=== PATIENT | male | born 1930 | race Caucasian/White ===

== ENCOUNTER 2017-05-24 18:31 | Observation (INO) | payer OTHER, SELFPAY ==
[~2017-05-24] VITALS: Ht 185.4 cm; Wt 93.2 kg
[~2017-05-24 18:31] MED LIST: ALLO100 PO; AMLO10 PO; ASPI325 PO; ASPI81CH PO; ATEN25 PO; ATOR10 PO; Calcitriol0.5 MCG PO; FISH OIL 1,001000 MG PO; FURO40 PO; Ferrous Sulfat325 MG PO; GABA100 PO; HYDMOR2 PO; LEVSOD150 PO; LISI20 PO; Lasix40 MG PO; METO25ER PO; MULVIT PO; NEPHRO-VITE RX1 EACH PO; PARI1 PO; RXHYDMOR2 PO
[2017-05-24 20:02] LABS: Influenza A Negative (NEGATIVE); Influenza B Negative (NEGATIVE)
[2017-05-24 20:49] LABS: BASOPHILS ABSOLUTE AUTO 0.02 K/mm3 (0.00-0.23); BASOPHILS PERCENT AUTO 0 % (0-2); EOSINOPHILS ABSOLUTE AUTO 0.67 K/mm3 (0.00-0.68); EOSINOPHILS PERCENT AUTO 4 % (0-6); Hematocrit 38.1 % (37.0-53.0); Hemoglobin 12.7 g/dL (13.5-17.5); IMMATURE GRAN ABSOLUTE AUTO 0.14 K/mm3 (0.00-0.10); IMMATURE GRAN PERCENT AUTO 1 % (0-1); LYMPHOCYTES ABSOLUTE AUTO 0.55 K/mm3 (0.84-5.20); LYMPHOCYTES PERCENT AUTO 3 % (21-46); MONOCYTES ABSOLUTE AUTO 1.24 K/mm3 (0.16-1.47); MONOCYTES PERCENT AUTO 7 % (4-13); Mean Corpuscular HGB 35.3 pg (26.0-34.0); Mean Corpuscular HGB Conc 33.3 g/dL (31.5-36.5); Mean Corpuscular Volume 106 fL (80-100); Mean Platelet Volume 9.5 fL (9.1-12.4); NEUTROPHILS ABSOLUTE AUTO 15.26 K/mm3 (1.96-9.15); NEUTROPHILS PERCENT AUTO 85 % (41-73); Platelet Count 208 K/mm3 (150-400); RDW Coefficient Variation 14.3 % (11.7-14.2); RDW Standard Deviation 55.1 fL (35.1-46.3); White Blood Cell Count 17.88 K/mm3 (4.00-11.30)
[2017-05-24 20:52] LABS: International Normalized Ratio 1.07; Prothrombin Time Results 11.2 Sec (9.7-11.5)
[2017-05-24] MEDS ORDERED: [UNRECOGNIZED DRUG - CODE] PO (20:53)
[2017-05-24 20:57] LABS: Albumin, Blood 2.5 g/dL (3.4-5.0); Albumin/Globulin Ratio 0.8 (0.8-1.8); Bilirubin, Total 0.6 mg/dL (0.1-1.0); Bun/Creatinine Ratio 4.6 (12.0-20.0); Calcium, Blood 8.7 mg/dL (8.5-10.1); Creatinine, Blood 4.38 mg/dL (0.60-1.20); Globulin, Blood 3.1 g/dL (2.2-4.0); Potassium, Blood 4.1 mmol/L (3.5-5.5); Total Protein, Blood 5.6 g/dL (6.4-8.2)
[2017-05-24] MEDS ORDERED: [UNRECOGNIZED DRUG - CODE] PO (21:00)
[2017-05-25 05:26] LABS: BASOPHILS ABSOLUTE AUTO 0.02 K/mm3 (0.00-0.23); BASOPHILS PERCENT AUTO 0 % (0-2); EOSINOPHILS ABSOLUTE AUTO 0.87 K/mm3 (0.00-0.68); EOSINOPHILS PERCENT AUTO 6 % (0-6); Hematocrit 36.4 % (37.0-53.0); Hemoglobin 11.9 g/dL (13.5-17.5); IMMATURE GRAN ABSOLUTE AUTO 0.09 K/mm3 (0.00-0.10); IMMATURE GRAN PERCENT AUTO 1 % (0-1); LYMPHOCYTES ABSOLUTE AUTO 0.82 K/mm3 (0.84-5.20); LYMPHOCYTES PERCENT AUTO 5 % (21-46); MONOCYTES ABSOLUTE AUTO 1.15 K/mm3 (0.16-1.47); MONOCYTES PERCENT AUTO 7 % (4-13); Mean Corpuscular HGB 35.3 pg (26.0-34.0); Mean Corpuscular HGB Conc 32.7 g/dL (31.5-36.5); Mean Corpuscular Volume 108 fL (80-100); Mean Platelet Volume 9.9 fL (9.1-12.4); NEUTROPHILS ABSOLUTE AUTO 12.71 K/mm3 (1.96-9.15); NEUTROPHILS PERCENT AUTO 81 % (41-73); Platelet Count 203 K/mm3 (150-400); RDW Coefficient Variation 14.5 % (11.7-14.2); Red Blood Cell Count 3.37 M/mm3 (4.30-5.90); White Blood Cell Count 15.66 K/mm3 (4.00-11.30)
[2017-05-25 05:49] LABS: Bun/Creatinine Ratio 5.4 (12.0-20.0); Calcium, Blood 8.4 mg/dL (8.5-10.1); Creatinine, Blood 4.67 mg/dL (0.60-1.20); Potassium, Blood 3.9 mmol/L (3.5-5.5)
[2017-05-26 05:53] LABS: Albumin, Blood 2.6 g/dL (3.4-5.0); Anion Gap 8 mmol/L (6-16); Blood Urea Nitrogen 42 mg/dL (8-24); Bun/Creatinine Ratio 6.4 (12.0-20.0); CO2, Blood 33 mmol/L (21-32); Calcium, Blood 9.2 mg/dL (8.5-10.1); Chloride, Blood 96 mmol/L (98-108); Creatinine, Blood 6.56 mg/dL (0.60-1.20); Glomerular Filtration Rate 9 (60-); Glucose, Blood 111 mg/dL (70-99); Phosphorus, Blood 3.3 mg/dL (2.5-4.9); Potassium, Blood 4.2 mmol/L (3.5-5.5); Sodium, Blood 137 mmol/L (136-145)
[2017-05-26] MEDS ORDERED: AZIT250 PO (10:23)
[2017-11-28] MEDS ORDERED: DIPH50 PO (13:39)
[2017-11-28] MEDS ORDERED: POLYOX WSR-3011 GM PO (13:42)
[2017-11-28] MEDS ORDERED: ELIQUIS2.5 MG PO (13:44)
[2017-11-28] MEDS ORDERED: DOCU100 PO (13:45)
[2017-11-28] MEDS ORDERED: [UNRECOGNIZED DRUG - OTHER] PO (13:46)
[2017-11-28] MEDS ORDERED: HYDR1TAB94 PO (13:48)
[2017-11-28] MEDS ORDERED: ONDA4ODT MM (13:50)
[2017-11-28] MEDS ORDERED: OXYC5 PO (13:50)
[2017-11-30] MEDS ORDERED: MIDO5 PO (10:15)
[2017-12-05] MEDS ORDERED: METO50ER PO (12:54)
== END 2017-05-26 14:30 | disposition home or self-care (01) ==
LOC: ER 18:31 → MEDS 18:32 → ER 22:13 → MEDS 22:13 → ENPENDDIS 05-25 18:43 → EDPENDDIS 05-25 18:43 → MEDS 05-26 06:41 → EDPENDDISDT 05-26 08:53 → EDPENDDIS 05-26 08:53 → EDPENDDISTM 05-26 08:53 → MEDS 05-26 14:30
PROVIDERS: Emergency Medicine; Family Medicine; Internal Medicine
DX: J18.9 Pneumonia, unspecified organism (principal); I12.9 Hypertensive chronic kidney disease with stage 1 through stage 4 chronic kidney disease, or unspecified chronic kidney disease; N18.6 End stage renal disease; M10.9 Gout, unspecified; D63.1 Anemia in chronic kidney disease; E78.00 Pure hypercholesterolemia, unspecified; J44.9 Chronic obstructive pulmonary disease, unspecified; Z95.2 Presence of prosthetic heart valve; Z87.891 Personal history of nicotine dependence; Z90.49 Acquired absence of other specified parts of digestive tract; Z98.890 Other specified postprocedural states; Z99.2 Dependence on renal dialysis; Z88.5 Allergy status to narcotic agent; Z79.82 Long term (current) use of aspirin; Z79.899 Other long term (current) drug therapy; Z72.89 Other problems related to lifestyle
CPT/HCPCS: 36415; 71046; 80048; 80053; 80069; 83605; 85025; 85610; 87040; 87804; 93005; 93010; 94640; 94760; 94761; 96361; 96365; 96366; 96368; 96375; 99285; G0378; J0456; J0696; J1200; J7030; J7050

== ENCOUNTER 2017-10-31 12:56 | Inpatient (IN) | payer OTHER, SELFPAY ==
[~2017-10-31] VITALS: Ht 185.4 cm; Wt 87.8 kg
[~2017-10-31 12:56] MED LIST changes: +AZIT250 PO; +[UNRECOGNIZED DRUG - CODE] PO; +[UNRECOGNIZED DRUG - CODE] PO
[2017-10-31 13:33] LABS: BASOPHILS ABSOLUTE AUTO 0.02 K/mm3 (0.00-0.23); BASOPHILS PERCENT AUTO 0 % (0-2); EOSINOPHILS ABSOLUTE AUTO 0.15 K/mm3 (0.00-0.68); EOSINOPHILS PERCENT AUTO 3 % (0-6); Hematocrit 31.3 % (37.0-53.0); Hemoglobin 10.5 g/dL (13.5-17.5); IMMATURE GRAN ABSOLUTE AUTO 0.04 K/mm3 (0.00-0.10); IMMATURE GRAN PERCENT AUTO 1 % (0-1); LYMPHOCYTES ABSOLUTE AUTO 0.31 K/mm3 (0.84-5.20); LYMPHOCYTES PERCENT AUTO 7 % (21-46); MONOCYTES ABSOLUTE AUTO 0.73 K/mm3 (0.16-1.47); MONOCYTES PERCENT AUTO 16 % (4-13); Mean Corpuscular HGB 35.6 pg (26.0-34.0); Mean Corpuscular HGB Conc 33.5 g/dL (31.5-36.5); Mean Corpuscular Volume 106 fL (80-100); Mean Platelet Volume 9.9 fL (9.1-12.4); NEUTROPHILS ABSOLUTE AUTO 3.47 K/mm3 (1.96-9.15); NEUTROPHILS PERCENT AUTO 74 % (41-73); Platelet Count 141 K/mm3 (150-400); RDW Coefficient Variation 13.8 % (11.7-14.2); RDW Standard Deviation 53.8 fL (35.1-46.3); Red Blood Cell Count 2.95 M/mm3 (4.30-5.90); White Blood Cell Count 4.72 K/mm3 (4.00-11.30)
[2017-10-31 13:55] LABS: Troponin I <0.015 ng/mL (0.000-0.040)
[2017-10-31 13:57] LABS: Alanine Aminotransfer (ALT/SGP 21 U/L (12-78); Albumin, Blood 3.2 g/dL (3.4-5.0); Albumin/Globulin Ratio 0.9 (0.8-1.8); Alk Phos 48 U/L (50-136); Anion Gap 10 mmol/L (6-16); Aspartate Aminotrans (AST/SGOT 14 U/L (12-37); Bilirubin, Total 0.7 mg/dL (0.1-1.0); Blood Urea Nitrogen 30 mg/dL (8-24); Bun/Creatinine Ratio 5.5 (12.0-20.0); CO2, Blood 33 mmol/L (21-32); Calcium, Blood 9.8 mg/dL (8.5-10.1); Chloride, Blood 97 mmol/L (98-108); Creatinine, Blood 5.46 mg/dL (0.60-1.20); Globulin, Blood 3.5 g/dL (2.2-4.0); Glomerular Filtration Rate 11 (60-); Glucose, Blood 98 mg/dL (70-99); Potassium, Blood 4.6 mmol/L (3.5-5.5); Sodium, Blood 140 mmol/L (136-145); Total Protein, Blood 6.7 g/dL (6.4-8.2)
[2017-10-31 15:05] LABS: International Normalized Ratio 0.99; Prothrombin Time Results 10.2 Sec (9.7-11.5)
[2017-11-01 15:38] LABS: Magnesium, Blood 2.1 mg/dL (1.6-2.4); Troponin I <0.015 ng/mL (0.000-0.040)
[2017-11-01 17:06] LABS: Free Thyroxine 0.99 ng/dL (0.70-1.60)
[2017-11-01 17:08] LABS: Triiodothyronine, Free 1.05 pg/mL (2.18-3.98)
[2017-11-02 05:02] LABS: Albumin, Blood 2.9 g/dL (3.4-5.0); Anion Gap 9 mmol/L (6-16); Blood Urea Nitrogen 28 mg/dL (8-24); Bun/Creatinine Ratio 5.4 (12.0-20.0); CO2, Blood 36 mmol/L (21-32); Calcium, Blood 8.7 mg/dL (8.5-10.1); Chloride, Blood 93 mmol/L (98-108); Creatinine, Blood 5.14 mg/dL (0.60-1.20); Glomerular Filtration Rate 11 (60-); Glucose, Blood 98 mg/dL (70-99); Phosphorus, Blood 4.3 mg/dL (2.5-4.9); Potassium, Blood 4.4 mmol/L (3.5-5.5); Sodium, Blood 138 mmol/L (136-145)
[2017-11-03 04:10] LABS: BASOPHILS ABSOLUTE AUTO 0.01 K/mm3 (0.00-0.23); BASOPHILS PERCENT AUTO 0 % (0-2); EOSINOPHILS ABSOLUTE AUTO 0.28 K/mm3 (0.00-0.68); EOSINOPHILS PERCENT AUTO 4 % (0-6); Hematocrit 26.8 % (37.0-53.0); Hemoglobin 8.7 g/dL (13.5-17.5); IMMATURE GRAN ABSOLUTE AUTO 0.04 K/mm3 (0.00-0.10); IMMATURE GRAN PERCENT AUTO 1 % (0-1); LYMPHOCYTES ABSOLUTE AUTO 0.13 K/mm3 (0.84-5.20); LYMPHOCYTES PERCENT AUTO 2 % (21-46); MONOCYTES ABSOLUTE AUTO 1.03 K/mm3 (0.16-1.47); MONOCYTES PERCENT AUTO 14 % (4-13); Mean Corpuscular HGB 35.5 pg (26.0-34.0); Mean Corpuscular HGB Conc 32.5 g/dL (31.5-36.5); Mean Platelet Volume 10.4 fL (9.1-12.4); NEUTROPHILS ABSOLUTE AUTO 5.89 K/mm3 (1.96-9.15); NEUTROPHILS PERCENT AUTO 80 % (41-73); Platelet Count 80 K/mm3 (150-400); RDW Standard Deviation 56.1 fL (35.1-46.3); Red Blood Cell Count 2.45 M/mm3 (4.30-5.90); White Blood Cell Count 7.38 K/mm3 (4.00-11.30)
[2017-11-03 04:11] LABS: Mean Corpuscular Volume 109 fL (80-100)
[2017-11-03 04:25] LABS: Albumin, Blood 2.6 g/dL (3.4-5.0); Anion Gap 7 mmol/L (6-16); Blood Urea Nitrogen 44 mg/dL (8-24); Bun/Creatinine Ratio 6.6 (12.0-20.0); CO2, Blood 34 mmol/L (21-32); Calcium, Blood 8.8 mg/dL (8.5-10.1); Chloride, Blood 96 mmol/L (98-108); Creatinine, Blood 6.69 mg/dL (0.60-1.20); Glomerular Filtration Rate 8 (60-); Glucose, Blood 97 mg/dL (70-99); Phosphorus, Blood 5.4 mg/dL (2.5-4.9); Potassium, Blood 5.1 mmol/L (3.5-5.5); Sodium, Blood 137 mmol/L (136-145)
[2017-11-04 04:44] LABS: BASOPHILS ABSOLUTE AUTO 0.02 K/mm3 (0.00-0.23); BASOPHILS PERCENT AUTO 0 % (0-2); EOSINOPHILS ABSOLUTE AUTO 0.47 K/mm3 (0.00-0.68); EOSINOPHILS PERCENT AUTO 7 % (0-6); Hematocrit 26.9 % (37.0-53.0); Hemoglobin 8.9 g/dL (13.5-17.5); IMMATURE GRAN ABSOLUTE AUTO 0.04 K/mm3 (0.00-0.10); IMMATURE GRAN PERCENT AUTO 1 % (0-1); LYMPHOCYTES ABSOLUTE AUTO 0.26 K/mm3 (0.84-5.20); LYMPHOCYTES PERCENT AUTO 4 % (21-46); MONOCYTES ABSOLUTE AUTO 1.04 K/mm3 (0.16-1.47); MONOCYTES PERCENT AUTO 16 % (4-13); Mean Corpuscular HGB 36.3 pg (26.0-34.0); Mean Corpuscular HGB Conc 33.1 g/dL (31.5-36.5); Mean Corpuscular Volume 110 fL (80-100); Mean Platelet Volume 10.7 fL (9.1-12.4); NEUTROPHILS ABSOLUTE AUTO 4.76 K/mm3 (1.96-9.15); NEUTROPHILS PERCENT AUTO 72 % (41-73); Platelet Count 94 K/mm3 (150-400); RDW Coefficient Variation 13.8 % (11.7-14.2); RDW Standard Deviation 56.2 fL (35.1-46.3); Red Blood Cell Count 2.45 M/mm3 (4.30-5.90); White Blood Cell Count 6.59 K/mm3 (4.00-11.30)
[2017-11-04 05:02] LABS: Albumin, Blood 2.7 g/dL (3.4-5.0); Anion Gap 9 mmol/L (6-16); Blood Urea Nitrogen 33 mg/dL (8-24); Bun/Creatinine Ratio 5.8 (12.0-20.0); CO2, Blood 34 mmol/L (21-32); Calcium, Blood 9.3 mg/dL (8.5-10.1); Chloride, Blood 94 mmol/L (98-108); Creatinine, Blood 5.66 mg/dL (0.60-1.20); Glomerular Filtration Rate 10 (60-); Glucose, Blood 84 mg/dL (70-99); Phosphorus, Blood 4.9 mg/dL (2.5-4.9); Potassium, Blood 4.6 mmol/L (3.5-5.5); Sodium, Blood 137 mmol/L (136-145)
[2017-11-05 10:51] LABS: Albumin, Blood 2.4 g/dL (3.4-5.0); Anion Gap 11 mmol/L (6-16); Blood Urea Nitrogen 53 mg/dL (8-24); CO2, Blood 29 mmol/L (21-32); Calcium, Blood 9.6 mg/dL (8.5-10.1); Chloride, Blood 93 mmol/L (98-108); Creatinine, Blood 7.56 mg/dL (0.60-1.20); Glomerular Filtration Rate 7 (60-); Glucose, Blood 104 mg/dL (70-99); Phosphorus, Blood 4.2 mg/dL (2.5-4.9); Potassium, Blood 4.7 mmol/L (3.5-5.5); Sodium, Blood 133 mmol/L (136-145)
== END 2017-11-05 16:00 | DRG 480 ==
LOC: ER 12:56 → MEDS 12:57 → SURS 12:57
PROVIDERS: Emergency Medicine; Internal Medicine; Orthopaedic Surgery
PROC: 5A1D70Z Performance of Urinary Filtration, Intermittent, Less than 6 Hours Per Day (ICD-10-PCS; 2017-11-01)
PROC: 0QS604Z Reposition Right Upper Femur with Internal Fixation Device, Open Approach (ICD-10-PCS; principal; 2017-11-02 13:00)
PROC: 5A1D70Z Performance of Urinary Filtration, Intermittent, Less than 6 Hours Per Day (ICD-10-PCS; 2017-11-04)
DX: S72.041A Displaced fracture of base of neck of right femur, initial encounter for closed fracture (principal); N18.6 End stage renal disease; I12.0 Hypertensive chronic kidney disease with stage 5 chronic kidney disease or end stage renal disease; C34.91 Malignant neoplasm of unspecified part of right bronchus or lung; W19.XXXA Unspecified fall, initial encounter; I10 Essential (primary) hypertension; E78.5 Hyperlipidemia, unspecified; J44.9 Chronic obstructive pulmonary disease, unspecified; Z95.2 Presence of prosthetic heart valve; I48.91 Unspecified atrial fibrillation; M10.9 Gout, unspecified
CPT/HCPCS: 36415; 71046; 73502; 80053; 80069; 83735; 84439; 84443; 84480; 84481; 84484; 85018; 85025; 85610; 93005; 93010; 93306; 97110; 97162; 97165; 97530; 99285; C1713; G8978; G8979; G8987; G8988; J0171; J0690; J0881; J2370; J2405; J3010; J7030

== ENCOUNTER 2017-12-11 14:05 | Emergency (ER) | payer OTHER, SELFPAY ==
[~2017-12-11] VITALS: Ht 182.9 cm; Wt 83.9 kg
[~2017-12-11 14:05] MED LIST changes: +DIPH50 PO; +DOCU100 PO; +ELIQUIS2.5 MG PO; +HYDR1TAB94 PO; +METO50ER PO; +MIDO5 PO; +ONDA4ODT MM; +OXYC5 PO; +POLYOX WSR-3011 GM PO; +[UNRECOGNIZED DRUG - OTHER] PO
[2017-12-11] MEDS ORDERED: NEPHRO-VITE RX1 EACH PO (15:47)
== END 2017-12-11 17:08 | disposition home or self-care (01) ==
LOC: ER 14:05
DX: S52.502A Unspecified fracture of the lower end of left radius, initial encounter for closed fracture (principal); S00.12XA Contusion of left eyelid and periocular area, initial encounter; S80.02XA Contusion of left knee, initial encounter; I10 Essential (primary) hypertension; E78.5 Hyperlipidemia, unspecified; Z87.891 Personal history of nicotine dependence; Z79.82 Long term (current) use of aspirin; Z79.899 Other long term (current) drug therapy; W01.0XXA Fall on same level from slipping, tripping and stumbling without subsequent striking against object, initial encounter
CPT/HCPCS: 29125; 70450; 73110; 73564; 99284-25

== ENCOUNTER 2017-12-18 10:21 | Inpatient (IN) | payer OTHER, SELFPAY ==
[~2017-12-18] VITALS: Ht 182.9 cm; Wt 88.4 kg
[2017-12-18 10:36] LABS: Calcium, Ionized (POC) 0.98 mmol/L (1.10-1.46); Chloride (POC) 97 mmol/L (98-108); Creatinine (POC) 5.6 mg/dL (0.8-1.3); Glucose (ISTAT POC) 99 mg/dL (70-99); Hemoglobin (POC) 10.2 g/dL (13.5-17.5); Sodium (POC) 137 mmol/L (135-148); Total CO2 (POC) 30 mmol/L (21-32)
[2017-12-18 10:51] LABS: BASOPHILS ABSOLUTE AUTO 0.03 K/mm3 (0.00-0.23); BASOPHILS PERCENT AUTO 0 % (0-2); EOSINOPHILS ABSOLUTE AUTO 0.88 K/mm3 (0.00-0.68); EOSINOPHILS PERCENT AUTO 12 % (0-6); Hematocrit 29.6 % (37.0-53.0); Hemoglobin 10.3 g/dL (13.5-17.5); IMMATURE GRAN ABSOLUTE AUTO 0.03 K/mm3 (0.00-0.10); IMMATURE GRAN PERCENT AUTO 0 % (0-1); LYMPHOCYTES PERCENT AUTO 8 % (21-46); MONOCYTES ABSOLUTE AUTO 0.56 K/mm3 (0.16-1.47); MONOCYTES PERCENT AUTO 8 % (4-13); Mean Corpuscular HGB 36.9 pg (26.0-34.0); Mean Corpuscular HGB Conc 34.8 g/dL (31.5-36.5); Mean Platelet Volume 9.2 fL (9.1-12.4); NEUTROPHILS ABSOLUTE AUTO 5.02 K/mm3 (1.96-9.15); NEUTROPHILS PERCENT AUTO 71 % (41-73); Platelet Count 189 K/mm3 (150-400); RDW Coefficient Variation 13.8 % (11.7-14.2); RDW Standard Deviation 53.8 fL (35.1-46.3); Red Blood Cell Count 2.79 M/mm3 (4.30-5.90); White Blood Cell Count 7.12 K/mm3 (4.00-11.30)
[2017-12-18 10:56] LABS: Mean Corpuscular Volume 106 fL (80-100)
[2017-12-18 11:04] LABS: International Normalized Ratio 1.03; Prothrombin Time Results 10.6 Sec (9.7-11.5)
[2017-12-18 11:10] LABS: Alanine Aminotransfer (ALT/SGP 21 U/L (12-78); Albumin, Blood 3.3 g/dL (3.4-5.0); Albumin/Globulin Ratio 0.7 (0.8-1.8); Alk Phos 65 U/L (50-136); Anion Gap 9 mmol/L (6-16); Aspartate Aminotrans (AST/SGOT 26 U/L (12-37); Bilirubin, Total 0.7 mg/dL (0.1-1.0); Blood Urea Nitrogen 40 mg/dL (8-24); Bun/Creatinine Ratio 7.5 (12.0-20.0); CO2, Blood 30 mmol/L (21-32); Calcium, Blood 9.3 mg/dL (8.5-10.1); Chloride, Blood 96 mmol/L (98-108); Creatinine, Blood 5.31 mg/dL (0.60-1.20); Globulin, Blood 4.5 g/dL (2.2-4.0); Glomerular Filtration Rate 11 (60-); Glucose, Blood 104 mg/dL (70-99); Potassium, Blood 4.1 mmol/L (3.5-5.5); Sodium, Blood 135 mmol/L (136-145); Total Protein, Blood 7.8 g/dL (6.4-8.2)
[2017-12-18 12:31] LABS: Troponin I <0.015 ng/mL (0.000-0.040)
[2017-12-19 03:27] LABS: BASOPHILS ABSOLUTE AUTO 0.02 K/mm3 (0.00-0.23); BASOPHILS PERCENT AUTO 0 % (0-2); EOSINOPHILS ABSOLUTE AUTO 0.21 K/mm3 (0.00-0.68); EOSINOPHILS PERCENT AUTO 3 % (0-6); Hematocrit 31.4 % (37.0-53.0); Hemoglobin 10.5 g/dL (13.5-17.5); IMMATURE GRAN ABSOLUTE AUTO 0.02 K/mm3 (0.00-0.10); IMMATURE GRAN PERCENT AUTO 0 % (0-1); LYMPHOCYTES ABSOLUTE AUTO 0.35 K/mm3 (0.84-5.20); LYMPHOCYTES PERCENT AUTO 5 % (21-46); MONOCYTES ABSOLUTE AUTO 0.42 K/mm3 (0.16-1.47); MONOCYTES PERCENT AUTO 6 % (4-13); Mean Corpuscular HGB 37.2 pg (26.0-34.0); Mean Corpuscular HGB Conc 33.4 g/dL (31.5-36.5); Mean Platelet Volume 9.5 fL (9.1-12.4); NEUTROPHILS ABSOLUTE AUTO 6.44 K/mm3 (1.96-9.15); NEUTROPHILS PERCENT AUTO 86 % (41-73); Platelet Count 168 K/mm3 (150-400); RDW Coefficient Variation 14.1 % (11.7-14.2); RDW Standard Deviation 57.8 fL (35.1-46.3); Red Blood Cell Count 2.82 M/mm3 (4.30-5.90); White Blood Cell Count 7.46 K/mm3 (4.00-11.30)
[2017-12-19 03:29] LABS: Mean Corpuscular Volume 111 fL (80-100)
[2017-12-19 03:49] LABS: Albumin, Blood 2.9 g/dL (3.4-5.0); Albumin/Globulin Ratio 0.7 (0.8-1.8); Bilirubin, Total 0.6 mg/dL (0.1-1.0); Bun/Creatinine Ratio 6.9 (12.0-20.0); Calcium, Blood 9.2 mg/dL (8.5-10.1); Creatinine, Blood 6.91 mg/dL (0.60-1.20); Globulin, Blood 4.2 g/dL (2.2-4.0); Potassium, Blood 4.9 mmol/L (3.5-5.5); Total Protein, Blood 7.1 g/dL (6.4-8.2); Troponin I 0.058 ng/mL (0.000-0.040)
[2017-12-19 12:02] LABS: Source, Urine Catheter
[2017-12-19 12:34] LABS: Bilirubin, Urine Neg (Neg); Blood, Urine 4+ (Neg); Glucose Qualitative, Urine 1+ (Neg); Ketones, Urine Neg (Neg); Leukocyte Esterase, Urine Neg (Neg); Nitrite, Urine Neg (Neg); Protein, Urine 3+ (Neg); Urobilinogen, Urine NORM (Normal)
[2017-12-19 12:43] LABS: Appearance, Urine Clear (Clear); Color, Urine Yellow (P-Yellow)
[2017-12-19 12:45] LABS: Red Blood Cells, Urine 0-2 /hpf (0-2); Squamous Epithelial Cells Rare /hpf (Few); White Blood Cells, Urine 0-2 /hpf (0-5)
[2017-12-19 12:46] LABS: Bacteria Not Seen /hpf
[2017-12-20 04:38] LABS: Albumin, Blood 2.9 g/dL (3.4-5.0); Anion Gap 10 mmol/L (6-16); Blood Urea Nitrogen 43 mg/dL (8-24); Bun/Creatinine Ratio 6.6 (12.0-20.0); CO2, Blood 31 mmol/L (21-32); Calcium, Blood 8.9 mg/dL (8.5-10.1); Chloride, Blood 98 mmol/L (98-108); Glomerular Filtration Rate 9 (60-); Glucose, Blood 77 mg/dL (70-99); Phosphorus, Blood 5.3 mg/dL (2.5-4.9); Potassium, Blood 4.5 mmol/L (3.5-5.5); Sodium, Blood 139 mmol/L (136-145)
[2017-12-21 05:13] LABS: Albumin, Blood 3.3 g/dL (3.4-5.0); Anion Gap 7 mmol/L (6-16); Blood Urea Nitrogen 28 mg/dL (8-24); Bun/Creatinine Ratio 5.6 (12.0-20.0); CO2, Blood 32 mmol/L (21-32); Calcium, Blood 9.4 mg/dL (8.5-10.1); Chloride, Blood 98 mmol/L (98-108); Glomerular Filtration Rate 12 (60-); Glucose, Blood 70 mg/dL (70-99); Phosphorus, Blood 4.3 mg/dL (2.5-4.9); Sodium, Blood 137 mmol/L (136-145)
[2017-12-22] MEDS ORDERED: LIDO700A20 TOP (10:58)
[2017-12-22] MEDS ORDERED: ACET325 PO (10:58)
[2017-12-22] MEDS ORDERED: LEVSOD100 PO (10:59)
== END 2017-12-22 14:00 | disposition home or self-care (01) | DRG 643 ==
LOC: ER 10:21 → PCU 12:53
PROVIDERS: Emergency Medicine; Internal Medicine
PROC: 5A1D70Z Performance of Urinary Filtration, Intermittent, Less than 6 Hours Per Day (ICD-10-PCS; principal; 2017-12-19)
PROC: 5A1D70Z Performance of Urinary Filtration, Intermittent, Less than 6 Hours Per Day (ICD-10-PCS; 2017-12-21)
DX: E03.9 Hypothyroidism, unspecified (principal); N18.6 End stage renal disease; G92 Toxic encephalopathy; I12.0 Hypertensive chronic kidney disease with stage 5 chronic kidney disease or end stage renal disease; E87.1 Hypo-osmolality and hyponatremia; T40.605A Adverse effect of unspecified narcotics, initial encounter; Z99.2 Dependence on renal dialysis; E78.5 Hyperlipidemia, unspecified; Z86.73 Personal history of transient ischemic attack (TIA), and cerebral infarction without residual deficits; I48.2 Chronic atrial fibrillation; Z79.01 Long term (current) use of anticoagulants; Z95.2 Presence of prosthetic heart valve; M10.9 Gout, unspecified
CPT/HCPCS: 36415; 70450; 70496; 73502; 80047; 80053; 80069; 81001; 82607; 83735; 84439; 84443; 84484; 85014; 85025; 85610; 87040; 93005; 93010; 96365; 96375; 97116; 97162; 97166; 97530; 99285-25; C9113; G8978; G8979; G8987; G8988; J0360; J0610; J1630; J2250; J7030; Q9967